=== PATIENT | female | born 1980 | race Caucasian/White ===

== ENCOUNTER 2024-10-13 10:26 | Emergency (ER) | payer OTHER ==
[~2024-10-13] VITALS: Ht 177.8 cm; Wt 65.8 kg
[2024-10-13] MEDS ORDERED: MELO-107 PO (12:10)
[2024-10-13] MEDS ORDERED: CYCL10TA9 PO (12:10)
[2024-10-13 12:28] VITALS: BP 119/72; TEMP 98.2; O2SAT 100
== END 2024-10-13 12:28 | disposition home or self-care (01) ==
LOC: ER 10:51
DX: M62.838 Other muscle spasm (principal); M79.632 Pain in left forearm